=== PATIENT | male | born 1945 | race Two or more races ===

== ENCOUNTER 2025-08-11 06:15 | Inpatient (IN) | payer OTHER ==
[2025-08-11] VITALS (14 sets, daily range): BP systolic 104–151; BP diastolic 58–83; PULSE 55–87; RESP 12–19; TEMP 94.1–98; O2SAT 97–100
[~2025-08-11] VITALS: Ht 183.5 cm; Wt 89.4 kg
[~2025-08-11 06:15] MED LIST: ALPR0.254 PO; HYDR-4795 PO; LATA0.008 OP; RAMI5CAP40 PO; SILD100T PO; SIMV20TA20 PO; TAMS0.4C39 PO
[2025-08-11] MEDS: ceFAZolin 2 GM/D5W50ml 50 ML IV ONE (06:33)
[2025-08-11] MEDS: ACETAMINOPHEN IV 100 ML IV ONE (06:33)
[2025-08-11] MEDS: CEFEPIME 1GM/50ML 50 ML IV ONE (07:02)
[2025-08-11] MEDS: ACETAMINOPHEN IV 1000 MG/100ML (10MG/ML) IV ONE (07:09)
[2025-08-11] MEDS: CELECOXIB 100 MG CAP PO ONE (07:09)
[2025-08-11] MEDS: PREGABALIN CAPSULE 75 MG CAP PO ONE (07:09)
[2025-08-11] MEDS ORDERED: NITROGLYCERIN 0.4 MG SL TAB SL PRN (07:15)
[2025-08-11] MEDS ORDERED: MORPHINE SULFATE INJ 2 MG/ml SYRG IV PRN (07:15)
[2025-08-11] MEDS ORDERED: HYDROmorphone HCL 2 MG/ML VL/or syr IV PRN ×2 (07:15→08:45)
[2025-08-11] MEDS: TRANEXAMIC ACID 20 ML ONE (07:15)
[2025-08-11] MEDS ORDERED: ONDANSETRON HCL 4 MG/2 ML VIAL IV PRN (07:15)
[2025-08-11] MEDS: LACTATED RINGER'S 1,000 ML IV SCH (07:15)
[2025-08-11] MEDS ORDERED: ALPRAZolam 0.25 MG TAB PO PRN (07:15)
[2025-08-11] MEDS: ceFAZolin 1GM/50ML 50 ML IV SCH (07:15)
[2025-08-11] MEDS: TETRACAINE 1% INJ 2 ML VIAL IJ ONE (07:16)
[2025-08-11] MEDS ORDERED: fentaNYL CITRATE 100 MCG/2 ML VL ONE (07:26)
[2025-08-11] MEDS ORDERED: MIDAZOLAM HCL 2MG/2ML 2ml VIAL (1mg/ml) ONE (07:27)
[2025-08-11] MEDS ORDERED: MIDAZOLAM HCL 2MG/2ML 2ml VIAL (1mg/ml) IV PRN (08:45)
[2025-08-11] MEDS ORDERED: NALOXONE HCL 0.4 MG/ML VIAL IV PRN (08:45)
[2025-08-11] MEDS ORDERED: hydrALAZINE HCL 20 MG/ML VL IV PRN (08:45)
[2025-08-11] MEDS: VANCOMYCIN HCL 1000 MG VL ONE (08:50)
[2025-08-11] MEDS: BUPIVACAINE HCL 0.25% P/F 10 ML VIAL ONE (08:50)
[2025-08-11] MEDS: MORPHINE SULF PF 5 MG/10 ML VIAL ONE (08:50)
[2025-08-11] MEDS: KETOROLAC TROMETH 30 MG/ML 1ML VIAL ONE (08:50)
[2025-08-11] MEDS: ONDANSETRON HCL 4 MG/2 ML VIAL IV PRN (09:36)
[2025-08-11] MEDS: DOCUSATE SOD 100 MG CAP PO SCH (10:00)
[2025-08-11] MEDS: LATANOPROST 0.005 % OPTH(EYE) SOL 2.5ML OP SCH (10:00)
[2025-08-11] MEDS: RAMIPRIL 2.5 MG CAP PO SCH (10:00)
--- NOTE | 2025-08-11 10:14 | DVH ---
CLINICAL INDICATION: sp Left LIANA TECHNIQUE: 2 radiographic views of the pelvis were obtained. Comparison: XR 2HIP LEFT 2-3 VIEW on DOS: 06/07/25 FINDINGS/IMPRESSION: Postsurgical changes from left hip arthroplasty.
[2025-08-11] MEDS: METOCLOPRAMIDE HCL 5MG/ml INJ 2ml VIAL IV PRN (13:15)
--- NOTE | 2025-08-11 15:07 | DVHINCON2 ---
Date of service: Aug 11, 2025 Reason for Consultation Postop medical management while in the hospital History of Present Illness This is a 80-year-old gentleman with a left hip osteoarthritis, BPH, hypertension brought into the hospital by orthopedic surgeon and underwent successful left hip replacement surgery. Postop he is admitted to the hospital and hospitalist has been consulted for medical management. Currently his is at bedside. Patient is alert and awake denies any complaints. Past Medical History BPH, hypertension, osteoarthritis and glaucoma Past Surgical History No prior surgeries Family History: Diabetes mellitus G8 MOTHER, Onset:Unknown Malignant neoplasm of ovary G8 MOTHER, Onset:Unknown Prostate carcinoma G8 FATHER, Onset:Unknown Allergies: Coded Allergies: NO KNOWN ALLERGIES (Unverified , 08/06/25) Home Meds Reported Medications Latanoprost (LATANOPROST) 0.005 % Maryan, 0.005 % OP, ML 08/06/25 Sildenafil Citrate (Viagra) 100 Mg Tab, 100 MG PO PRN, TAB 08/06/25 Alprazolam (Alprazolam) 0.25 Mg Tab, 0.25 MG PO PRN PRN for ANXIETY, TAB 08/06/25 Hydrocodone-Acetaminophen (Hydrocodone Bitartrate/AC 7.5-325 mg) 1 Tab Tab, 1 TAB PO TID, TAB 08/06/25 Simvastatin (Simvastatin) 20 Mg Tab, 20 MG PO QPM, TAB 08/06/25 Ramipril (Ramipril) 5 Mg Cap, 5 MG PO DAILY, CAP 08/06/25 Tamsulosin Hcl (Tamsulosin Hcl) 0.4 Mg Cap, 0.4 MG PO DAILY, CAP 08/06/25 Current Medications Current Medications Medications (Trade) Dose Ordered Sig/Chiara Route PRN Reason Start Time Stop Time Status Last Admin Alprazolam (Xanax Tablet) 0.25 mg PRN PRN PO ANXIETY 08/11/25 07:15 Hold Latanoprost (Xalatan) 1 drop BID OP 08/11/25 10:00 Tamsulosin HCl (Flomax) 0.4 mg QPM PO 08/11/25 18:00 Ramipril (Altace Capsule) 5 mg DAILY PO 08/11/25 10:00 Atorvastatin Calcium (Lipitor) 10 mg HS PO 08/11/25 22:00 Lactated Ringer's 1,000 ml @ 100 mls/hr Q10H IV 08/11/25 07:15 Cefazolin Sodium 50 ml @ 50 mls/hr Q6H IV 08/11/25 07:15 08/11/25 20:14 08/11/25 13:41 Hydromorphone HCl (Dilaudid Injection) 1 mg Q2HP PRN IV SEVERE PAIN (7-10 PAIN SCALE) 08/11/25 07:15 Oxycodone HCl (OxyCONTIN ER Tablet) 10 mg Q12HR PO 08/11/25 10:00 Ondansetron HCl (Zofran) 4 mg Q6HP PRN IV NAUSEA / VOMITING 08/11/25 07:15 Hold Docusate Sodium (Colace Capsule) 100 mg Q12HR PO 08/11/25 10:00 Nitroglycerin (Ntrostat Sublingual) 0.4 mg Q5MINP PRN SL FOR CHEST PAIN 08/11/25 07:15 Morphine Sulfate 2 mg Q30M PRN IV FOR CHEST PAIN 08/11/25 07:15 Acetaminophen/ Hydrocodone Bitart (Marlette 10/325MG Tab) 1 tab Q4HP PRN PO MILD PAIN (1-3 PAIN SCALE) 08/11/25 07:15 Cefepime HCl 50 ml @ 12.5 mls/hr DAILY IV 08/12/25 10:00 Aspirin (Ecotrin Enteric Coated Tablet) 81 mg BID PO 08/12/25 07:00 Ondansetron HCl (Zofran) 4 mg Q4HP PRN IV NAUSEA / VOMITING 08/11/25 08:45 08/11/25 10:39 Naloxone HCl (Narcan) 0.2 mg Q5M PRN IV For respirations < than 10/min 08/11/25 08:45 08/11/25 09:01 DC Hydromorphone HCl (Dilaudid Injection) 0.5 mg Q15M PRN IV SEVERE PAIN (7-10 PAIN SCALE) 08/11/25 08:45 08/11/25 09:16 DC Dexamethasone Sodium Phosphate (Decadron Injection) 10 mg HOSPITAL EDUCATION COORDINATOR PRN IV FOR ITCHING 08/11/25 08:45 08/11/25 09:01 DC Hydralazine HCl (Apresoline Injection) 5 mg Q10M PRN IV SBP>160 08/11/25 08:45 08/11/25 09:36 DC Midazolam HCl (Versed Injection) 1 mg Q10M PRN IV ANXIETY 08/11/25 08:45 08/11/25 09:26 DC Ephedrine Sulfate (ePHEDrine SULFATE) 10 mg Q10M PRN IV SBP LESS THAN 90 08/11/25 08:45 08/11/25 09:26 DC Metoclopramide HCl (Reglan Injection) 10 mg Q6HPRN PRN IV NAUSEA / VOMITING 08/11/25 13:15 08/11/25 13:15 Review of Systems No complaints of chest pain shortness for breath. No headache dizziness or lightheadedness. Other review of systems reviewed normal. Vital Signs Vital Signs Date Time Temp Pulse Resp B/P (MAP) Pulse Ox O2 Delivery O2 Flow Rate FiO2 08/11/25 14:00 96.2 62 16 138/83 (101) 98 96.2 08/11/25 10:17 Nasal Cannula* 3 32 Physical Exam Elderly gentleman comfortable in bed alert awake oriented to place and person. His is at bedside. HEENT neck supple no JVD pupils equal round react to light. Heart regular rate and rhythm S1-S2 without murmurs. Lungs fair air movement with a poor inspiratory effort but no wheezing or rales noted. Chest tube will expansion. Abdomen is obese soft nontender nondistended positive bowel sounds. Extremities no edema positive distal pedal pulses. Assessment Status post left hip ORIF due to advanced osteoarthritis Osteoarthritis of the left hip BPH Hypertension Glaucoma We will monitor him on telemetry. Incentive spirometry. Breathing treatments as needed. Continue current pain regimen as started by orthopedic surgeon. I will resume his home medications for his chronic medical problems. Follow the labs in the morning. Otherwise continue rest of supportive care and treatment. His further clinical management per clinical course and postop recovery. Discussed with the patient/his as well as nurse at bedside regarding his care plan. Plan discussed with: Patient, Spouse CARLTON RIDDLE MD Aug 11, 2025 15:07
[2025-08-11] MEDS: TAMSULOSIN HYDROCHLORIDE 0.4 MG CAP PO SCH (16:47)
[2025-08-11] MEDS: ATORVASTATIN 20 MG TAB PO SCH (21:32)
[2025-08-12] VITALS (19 sets, daily range): BP systolic 109–135; BP diastolic 58–90; PULSE 65–98; RESP 16–20; TEMP 97.6–98.8; O2SAT 92–99
[2025-08-12] MEDS: ASPirin-EC 81 mg tab PO SCH (06:01)
[2025-08-12 07:39] LABS: Hematocrit 37.6 % (41.0-53.0); Hemoglobin 13.1 g/dL (13.5-17.5)
[2025-08-12 07:47] LABS: Alanine Aminotransferase 18 U/L (7-40); Albumin 4.0 g/dL (3.2-4.8); Anion Gap 9 (5-15); BUN/Creatinine Ratio 19.3 (10.0-20.0); Blood Urea Nitrogen 21 mg/dL (9-23); Calcium 9.0 mg/dL (8.7-10.4); Carbon Dioxide 30 mmol/L (20-31); Chloride 102 mmol/L (98-107); Glucose 91 mg/dL (74-106); Potassium 4.6 mmol/L (3.5-5.1); Sodium 141 mmol/L (136-145); Total Protein 6.4 g/dL (5.7-8.2)
[2025-08-12 07:48] LABS: Alkaline Phosphatase 39 U/L (46-116); Bilirubin, Total 0.5 mg/dL (0.2-1.0)
[2025-08-12] MEDS ORDERED: PHENYLEPHRINE HCL 10 MG/ML VL IV ONE (12:44)
[2025-08-12] MEDS ORDERED: PROPOFOL 10 MG/ML 20 ML IV ONE (12:44)
--- NOTE | 2025-08-12 13:02 | DVHPN2 ---
Progress Note Date Seen: Aug 12, 2025 Has the PT tested + for MRSA If YES, has PT been informed?: No Medical Necessity Reason Pt with a Central, PICC or Fol: No Subjective Patient reports: No new complaints Objective vital signs Vital Sign Date Time Temp Pulse Resp B/P (MAP) Pulse Ox O2 Delivery O2 Flow Rate FiO2 08/12/25 12:49 97.6 81 20 131/58 (82) 94 97.6 08/12/25 08:00 Nasal Cannula* 3 32 Total Intake and Output 08/11/25 08/11/25 08/12/25 15:00 23:00 07:00 Intake Total 700 ml 210 ml Balance 700 ml 210 ml medications Current Medications Medications Dose Ordered Sig/Chiara Route Start Time Stop Time Status Last Admin Dose Admin Alprazolam 0.25 mg PRN PRN PO 08/11/25 07:15 Hold Latanoprost 1 drop BID OP 08/11/25 10:00 Tamsulosin HCl 0.4 mg QPM PO 08/11/25 18:00 08/11/25 16:47 0.4 MG Ramipril 5 mg DAILY PO 08/11/25 10:00 08/12/25 09:12 5 MG Atorvastatin Calcium 10 mg HS PO 08/11/25 22:00 08/11/25 21:32 10 MG Hydromorphone HCl 1 mg Q2HP PRN IV 08/11/25 07:15 Oxycodone HCl 10 mg Q12HR PO 08/11/25 10:00 08/12/25 09:13 10 MG Docusate Sodium 100 mg Q12HR PO 08/11/25 10:00 08/12/25 09:12 100 MG Nitroglycerin 0.4 mg Q5MINP PRN SL 08/11/25 07:15 Morphine Sulfate 2 mg Q30M PRN IV 08/11/25 07:15 Acetaminophen/ Hydrocodone Bitart 1 tab Q4HP PRN PO 08/11/25 07:15 Cefepime HCl 50 ml @ 12.5 mls/hr DAILY IV 08/12/25 10:00 Aspirin 81 mg BID PO 08/12/25 07:00 08/12/25 10:00 81 MG Ondansetron HCl 4 mg Q4HP PRN IV 08/11/25 08:45 08/11/25 10:39 4 MG Metoclopramide HCl 10 mg Q6HPRN PRN IV 08/11/25 13:15 08/11/25 13:15 10 MG Examination: GENERAL:Normal, MSK:Abnormal laboratory and microbiology Laboratory Tests 08/12/25 05:18 Test 08/12/25 05:18 Range/Units Serum Glucose 91 74-106 mg/dL Problem List/Assessment/Plan Problem List/Assessment/Plan 80 year old male who is s/p Left LIANA POD 1 1. Pain control 2. WBAT with walker 3. PT 4. DVT ppx 5. d/c planning for home tomorrow Plan discussed with: Patient Date of Service: Aug 12, 2025 Billing Provider: LYNN GOOD MD Common Visit Codes: NOT BILLABLE THEO HAMILTON NP Aug 12, 2025 13:02
[2025-08-12] MEDS: HYDROcodone-ACET 10/325MG TAB PO PRN (13:55)
[2025-08-12] MEDS: CEFEPIME 1GM/50ML 50 ML IV SCH (14:01)
--- NOTE | 2025-08-12 14:35 | DVHPN2 ---
Progress Note - Dictate Date Seen: Aug 12, 2025 Has the PT tested + for MRSA If YES, has PT been informed?: No Medical Necessity Reason Pt with a Central, PICC or Fol: No Subjective Clinically stable. Participated with the physical therapy today. Voiding urine without issues. is at bedside. Pain is tolerable. Postop day one status post hip surgery vital signs Vital Sign Date Time Temp Pulse Resp B/P (MAP) Pulse Ox O2 Delivery O2 Flow Rate FiO2 08/12/25 12:49 97.6 81 20 131/58 (82) 94 97.6 08/12/25 08:00 Nasal Cannula* 3 32 Total Intake and Output 08/11/25 08/11/25 08/12/25 15:00 23:00 07:00 Intake Total 700 ml 210 ml Balance 700 ml 210 ml medications Current Medications Medications Dose Ordered Sig/Chiara Route Start Time Stop Time Status Last Admin Dose Admin Alprazolam 0.25 mg PRN PRN PO 08/11/25 07:15 Hold Latanoprost 1 drop BID OP 08/11/25 10:00 Tamsulosin HCl 0.4 mg QPM PO 08/11/25 18:00 08/11/25 16:47 0.4 MG Ramipril 5 mg DAILY PO 08/11/25 10:00 08/12/25 09:12 5 MG Atorvastatin Calcium 10 mg HS PO 08/11/25 22:00 08/11/25 21:32 10 MG Hydromorphone HCl 1 mg Q2HP PRN IV 08/11/25 07:15 Oxycodone HCl 10 mg Q12HR PO 08/11/25 10:00 08/12/25 09:13 10 MG Docusate Sodium 100 mg Q12HR PO 08/11/25 10:00 08/12/25 09:12 100 MG Nitroglycerin 0.4 mg Q5MINP PRN SL 08/11/25 07:15 Morphine Sulfate 2 mg Q30M PRN IV 08/11/25 07:15 Acetaminophen/ Hydrocodone Bitart 1 tab Q4HP PRN PO 08/11/25 07:15 08/12/25 13:55 1 TAB Cefepime HCl 50 ml @ 12.5 mls/hr DAILY IV 08/12/25 10:00 08/12/25 14:01 12.5 MLS/HR Aspirin 81 mg BID PO 08/12/25 07:00 08/12/25 10:00 81 MG Ondansetron HCl 4 mg Q4HP PRN IV 08/11/25 08:45 08/11/25 10:39 4 MG Metoclopramide HCl 10 mg Q6HPRN PRN IV 08/11/25 13:15 08/11/25 13:15 10 MG objective HEENT neck supple no JVD. Alert awake oriented to place and person comfortable in bed with the at bedside. Heart regular rate and rhythm S1 and S2. Lungs fair air movement without rales. Abdomen obese soft positive bowel sounds. Extremities no edema positive pulses. laboratory and microbiology Laboratory Tests 08/12/25 05:18 Test 08/12/25 05:18 Range/Units Serum Glucose 91 74-106 mg/dL Assessment/Plan Status post left hip ORIF due to advanced osteoarthritis Osteoarthritis of the left hip BPH Hypertension Glaucoma Continue physical therapy. We will have home DME arranged along with the home physical therapy. Patient and does not want him to go to halfway facility would rather go home with PT. Continue current supportive care and treatment overnight and if he remains stable consider discharge home with the home PT for their preference. Discussed with the patient/ at bedside as well as nurse regarding care plan. Plan discussed with: Patient, Spouse CARLTON RIDDLE MD Aug 12, 2025 14:35
[2025-08-13 05:00] VITALS: BP 158/67; PULSE 90; RESP 19; TEMP 97.8; O2SAT 91
[2025-08-13 06:05] LABS: Hematocrit 37.8 % (41.0-53.0); Hemoglobin 13.4 g/dL (13.5-17.5)
--- NOTE | 2025-08-13 07:50 | DVHDS2 ---
Discharge Summary Date of Admission Aug 11, 2025 at 07:13 Date of Discharge: Aug 13, 2025 Wounds: If the wound is draining please change the gauze pad on the wound until it stops. If drainage persists past 10 days please notify our office. If there is a sticky gel dressing over your wound, you may leave this in place for as long as it is clean and dry. If it becomes loose or causes skin irritation, it is OK to remove it and place clean gauze over your wound. 1. You might notice some bruising around the surgical site, this is normal. 2. Check your temperature on a daily basis. Please note that a low-grade temp below 101 is not uncommon after surgery especially during the first 3 days. Notify the office if your temperature spikes above 101.5 after the 3rd post- operative date. 3. Many patients experience significant swelling in the thigh, this may extend below the knee and sometimes to the ankle. Swelling increases during the first week and subsides during the following week. 4. Provided you have been on a blood thinner since surgery and have been up and about at least three times per day, the risk of a blood clot is low and this swelling is an expected part of recovery. It will largely or completely resolve by your first post-operative visit. 5. Linneus, if present, will be removed at 2 weeks during initial post-op visit. Labs/Diagnostic Data: Laboratory Results Test 08/13/25 05:36 08/12/25 05:18 Hemoglobin 13.4 g/dL (13.5-17.5) Hematocrit 37.8 % (41.0-53.0) Sodium Level 141 mmol/L (136-145) Potassium Level 4.6 mmol/L (3.5-5.1) Chloride Level 102 mmol/L (98-107) Carbon Dioxide Level 30 mmol/L (20-31) Anion Gap 9 (5-15) Blood Urea Nitrogen 21 mg/dL (9-23) Creatinine 1.09 mg/dL (0.700-1.30) Glomerular Filtration Rate Calc 68 mL/min (>90) BUN/Creatinine Ratio 19.3 (10.0-20.0) Serum Glucose 91 mg/dL (74-106) Calcium Level 9.0 mg/dL (8.7-10.4) Total Bilirubin 0.5 mg/dL (0.2-1.0) Aspartate Amino Transferase (AST) 28 U/L (13-40) Alanine Aminotransferase (ALT) 18 U/L (7-40) Alkaline Phosphatase 39 U/L (46-116) Total Protein 6.4 g/dL (5.7-8.2) Albumin 4.0 g/dL (3.2-4.8) Other Laboratory Tests 08/13/25 05:36 08/12/25 05:18 Brief Hx & Hospital Course: s/p left total hip arthroplasty Condition at Discharge: Good Final Diagnosis/Problems List left hip osteoarthritis Discharge Disposition: Home with Health Services Discharge Instruct/Medications Diet: Regular Diet comment: may advance diet as tolerated, drink plenty of fluids Activity: See Comment Activity comment: 1.You can bear as much weight as you tolerate on your hip unless specifically instructed otherwise. You may use the walking aid which you were discharged with and switch to a cane whenever you feel comfortable doing so. You should use an assistive device until you can walk comfortably without it. Keep in mind that every patient moves at their own speed of recovery so take your time. 2.A physical therapist will visit you at home. 3. Although guarantees against a dislocation do not exist, the hip was noted to be sufficiently stable in surgery. Below are motions that you should dischargenot do for 4-6 weeks, depending on the surgical approach used. If there are questions, please call the office. a.Bend forward past 90 degrees b.Sit on a regular low chair, couch, car seat etc... c.Cross your legs d.Use a regular low toilet seat. e.Sleep on your stomach or on either side. 3.High impact activity such as jumping, aerobics, tennis, and skiing are not permitted during the first 3 months after surgery. These activities can contribute to accelerated wear and should be done with caution after this time. Discuss this with your surgeon if you have questions. 4.Although a bath or whirlpool is NOT permitted during the first 2-3 weeks, you may shower as soon as you get home from the hospital provided you are able to keep your bandage clean and dry and there is no wound drainage. If you are unable to place a secured covering over your bandage bed bath/sponge bath may likely be the more appropriate option. 5.Swimming is not permitted until the wound is healed, which typically occurs approximately 3-4 weeks after surgery. Follow Up/Referral: 1.Driving is not permitted within the first 2 weeks. 2.Your first postoperative visit will take place 2weeks after discharge. Please call the office to arrange this appointment. 3.Antibiotic preventative treatment is required before dental or other invasive procedures. Please ask your surgeon about this at your first postoperative visit. Your hip replacement contains metal which may activate metal detectors. You may wish to carry a letter from your surgeon to communicate this to security personnel. If you experience chest pain, shortness of breath or severe painful calf swelling, go to the nearest emergency room to be evaluated. Please call our office once your situation is stabilized. Medications: 1.You will be discharged with pain medication, Aspirin as a blood thinner and sometimes an anti-inflammatory medication such as Celebrex or Mobic might be prescribed. Please follow the instructions regarding these medicines as provided by your nurse at the hospital. 2.Narcotic pain medication has side effects, including constipation. Please ensure you continue to take stool softeners (Colace, Senna) while taking your pain medication to help protect against constipation. Getting up and moving around at least a few times per day helps with this also. 3.Lovenox 40 Sq x 12 days followed by one regular strength 325 mg coated aspirin daily for 4 weeks after surgery. Then, take one baby aspirin, 81 mg daily for 6 weeks more. A major, yet preventable, complication of Orthopaedic Surgery is a blood clot (DVT). It is important not to miss any doses of this important medication. 4.You should restart all of your prescription medications once discharged unless specifically instructed otherwise. 5.Herbal supplements may be restarted 2 weeks after surgery. Scheduled Hydrocodone-Acetaminophen (Hydrocodone Bitartrate/AC 7.5-325 mg), 1 TAB PO TID, (Reported) Ramipril (Ramipril), 5 MG PO DAILY, (Reported) Sildenafil Citrate (Viagra), 100 MG PO PRN, (Reported) Simvastatin (Simvastatin), 20 MG PO QPM, (Reported) Tamsulosin Hcl (Tamsulosin Hcl), 0.4 MG PO DAILY, (Reported) Scheduled PRN Alprazolam (Alprazolam), 0.25 MG PO PRN PRN for ANXIETY, (Reported) Miscellaneous Medications Latanoprost (Latanoprost), 0.005 % OP, (Reported) Discharge Statement: "Patient was advised to return to the ER or call 911 if any headaches, dizziness, shortness of breath, chest pain, abdominal pain, bleeding, fevers, or worsening of medical condition. Patient was counseled about treatment plan, medications, possible side effects, patientverbalized understanding. All questions were answered to the best of my ability. This discharge took greater then 30 minutes in planning, reviewing documentation, counseling the patient, and discussing with other team members." ASSESSMENT ASSESSMENT Assessment THEO HAMILTON NP Aug 13, 2025 07:50
[2025-08-13 09:18] VITALS: BP 149/89; PULSE 88; RESP 18; TEMP 98.6; O2SAT 96
[2025-08-13 12:03] VITALS: BP 149/89; PULSE 100; RESP 18; TEMP 37; O2SAT 96
--- NOTE | 2025-08-14 06:47 | DVHOP2 ---
Operative Report - 2 Report Details Date: 08/11/25 Preop Diagnosis: left hip osteoarthritis Postop Diagnosis: left hip osteoarthritis Surgeon: Reymundo Elkins MD Cribber: Luis MAHER Anesthesiologist: Anesthesia: General Implant: [employer] see implant log Consent: The patient was informed of the risks and benefits of the procedure. These include but are not limited to complications of anesthesia, postoperative infection, incomplete relief of symptoms, recurrence of symptoms, damage to blood vessels, nerves and tendons, deep venous thrombosis, pulmonary embolism and possible need for repeat surgery in the future. Estimated Blood Loss: 300 cc Name of Procedure Performed Left total hip arthroplasty using computer navigation Procedure Details Procedure Details: FINDINGS: Extensive degenerative disease with grade IV changes INDICATION: This patient has failed non-operative treatments for hip arthritis and is now indicated for a total hip replacement. Preoperatively in the waiting area as well as in the office, I had a long discussion with the patient regarding the plan, the expected outcome, the risks, benefits, and alternatives of surgery. The risks include, but are not limited to, infection (which may require future surgery and removal of implants) , bleeding (which may require a transfusion), damage to nerves, arteries, veins, tendons, muscles and other adjacent structures. Also discussed the possibilities of dislocation, leg-length discrepancy, intraoperative fractures, implant loosening, heterotopic bone formation, and revision for variety of reasons, and medical complications etc. This was discussed at length and consent has been obtained. DESCRIPTION OF PROCEDURE: In the preoperative holding area, the consent was reviewed and the appropriate extremity was verified by the patient and marked with my initials. The patient was then transferred to the operating theatre. Appropriate anesthetia was induced. All bony prominences were well padded. A time out was performed verifying the side and site of surgery according to standard protocol. Preoperative antibiotics were given. Tranexamic acid was given. The patient was then placed in the lateral decubitus position and fixed with rigid pelvic fixation. All bony prominences were well padded and an axillary roll was placed. The affected hip area was then prepped and draped in the usual sterile fashion. Using an 11-blade, three stab incisions were made over the iliac crest. Two threaded guide pins were inserted into the crest confirming to be in bone. The pelvic array was attached to the pins and tightened. We made a standard posterolateral incision sharply through the skin and carried our dissection down through subcutaneous tissue to the underlying fascia achieving hemostasis where necessary. We incised the fascia in line with our incision. We identified and protected the sciatic nerve. We took down the external rotators and hip capsule from their insertion into the greater trochanter, tagged them and retracted them posteriorly for further protection of the sciatic nerve. A check point was placed into the greater trochanter and the hip center and leg length length were registered. We then dislocated the femoral head and performed an osteotomy of the femoral neck in accordance with our pre-operative plan. The labrum was excised with a long-handle knife, and we exposed the acetabular rim and cotyloid fossa. We then reamed up to our final size in accordance with the preoperative plan. We copiously irrigated and then impacted the final cup into position. We confirmed the position with the robotic navigation guidance. We irrigated the cup and impacted the liner, checking to make sure it was well seated. Attention was then turned to the femur. We used a box osteotome followed by a canal finder to gain entry to the canal. Intramedullary contents were suctioned and care was taken to ensure they did not touch the tissues. We sequentially reamed until good cortical contact, then broached up to out final size. We trialed with the appropriate femoral neck and head and reduced the hip. The hip was taken through a full range of motion. The hip soft tissues were examined in extension and external rotation, the anterior capsule and IT band were palpated, and combined anteversion was determined to be 40 degrees. The hip was stable at maximum flexion, at 90 degrees of flexion and 45 degrees of internal rotation and the position of sleep. Leg lengths were restored as shown using the computer navigation, and the trial LTC matched preoperative and intraoperative templating. The hip was then dislocated and trial components removed. We copiously irrigated the wound and impacted the final femoral stem into position. The femoral head was impacted onto a clean and dry trunion and confirmed to be seated. The hip was reduced ensuring to tissues in the acetabular cup. We again brought it through a full functional range of motion and there was no evidence for dislocation, instability, or impingement. The checkpoint was removed. A dilute betadine solution (17.5mL in 500mL saline) was used to wash the joint and left to sit for 3 minutes. This was then irrigated out with copious amounts of pulse lavage. We sprinkled 1g vancomycin powder below the fascia and 1g above the fascia. We copiously irrigated the wound and soft tissues. The short external rotators and capsule were repaired to the greater trochanter through drill holes, and the quadratus was repaired. We palpated the sciatic nerve in continuity without tension. The fascia was closed with vicryl and a barbed suture. We closed over the fascia with vicryl suture and re-approximated the skin with alex A sterile dressing was placed. We returned the patient to the supine position. We verified all lower extremity compartments were soft and compressible and that we had intact distal pulses and checked our leg length pentecostal. The patient was then transferred to the recovery room in stable condition. Condition Good Disposition Still a Patient REYMUNDO ELKINS MD Aug 14, 2025 06:47
== END 2025-08-13 13:15 | disposition home health service (06) | DRG 470 ==
LOC: SUR 06:15 → OVERFLOW 07:13 → TELE-WESTW 10:02
PROVIDERS: ADMIT Orthopaedic Surgery Adult Reconstructive Orthopaedic Surgery; ATTEND Orthopaedic Surgery Adult Reconstructive Orthopaedic Surgery
PROC: 8E0YXBZ Computer Assisted Procedure of Lower Extremity (ICD-10-PCS; 2025-08-11)
PROC: 0SRB06Z Replacement of Left Hip Joint with Oxidized Zirconium on Polyethylene Synthetic Substitute, Open Approach (ICD-10-PCS; principal; 2025-08-11 07:33)
DX: M16.12 Unilateral primary osteoarthritis, left hip (principal); H40.9 Unspecified glaucoma; I10 Essential (primary) hypertension; N40.0 Benign prostatic hyperplasia without lower urinary tract symptoms; Z83.3 Family history of diabetes mellitus; Z80.42 Family history of malignant neoplasm of prostate
CPT/HCPCS: 36415; 72170; 80053; 85014; 85018; 86850; 86900; 86901; 97110; 97116; 97163; 97530; G0378; J0131; J1885; J2250; J2405; J2704; J3490